=== PATIENT | female | born 2000 | race Caucasian/White ===

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

== ENCOUNTER 2022-08-25 10:00 | Inpatient (IN) | payer BC ==
[2022-08-25 11:58] LABS: Amorphous Sediment,Urine Occasional /hpf; Appearance,Urine Turbid (Clear); Bilirubin,Urine Negative (Negative); Blood,Urine Large (Negative); Color,Urine Yellow; Glucose,Urine (UA) Negative (Negative); Ketones,Urine Negative (Negative); Leukocyte Esterase,Urine Negative (Negative); Mucus,Urine Rare /hpf; Nitrite,Urine Negative (Negative); PH, Urine 7.5 (5.0-8.0); Protein,Urine Trace (Negative); RBC,Urine 104 /hpf (0-5); Specific Gravity,Urine 1.022 (1.001-1.035); Squamous Epithelial Cell,Urine <1 /hpf (0-4); Urobilinogen,Urine <2.0 mg/dL (<2.0); WBC,Urine 2 /hpf (0-5)
[2022-08-25 12:10] LABS: Amphetamine Screen,Urine Not Detected (NotDetected); Barbiturate Screen,Urine Not Detected (NotDetected); Benzodiazepines Screen,Urine Not Detected (NotDetected); Cocaine Screen,Urine Not Detected (NotDetected); Methadone Screen, Urine Not Detected (NotDetected); Opiate Screen,Urine Not Detected (NotDetected); Oxycodone Screen, Urine Not Detected (NotDetected); Phencyclidine Screen,Urine Not Detected (NotDetected); Tricyclic Antidepressant,Urine Not Detected (NotDetected); Urn Cannabinoid Scrn Detected (NotDetected)
--- NOTE | 2022-08-25 12:53 | ED ---
Psych HPI - General Chief Complaint: Psychiatric Symptoms Stated Complaint: mental health Time Seen by Provider: 08/25/22 10:45 Source: patient Mode of arrival: ambulatory - History of Present Illness Initial Comments: 21-year-old female presents emergency department with depression. States that she has a history of depression and sees a psychiatrist. She takes Abilify and Cymbalta. Has been off her medications for 1 week. Reports that she has become increasingly stressed and depressed. This morning she was injured about harming herself by cutting herself. Plan was to cut her wrists. Presents for mental health evaluation. No drugs or alcohol use. No concern for . No other alleviating, precipitating or modifying factors. - Related Data Home Medications Medication Instructions Recorded Confirmed ARIPiprazole 10 mg PO HS 08/25/22 08/25/22 DULoxetine HCL [Cymbalta] 60 mg PO HS 08/25/22 08/25/22 medroxyPROGESTERone [Depo-Provera] 150 mg IM Q90D 08/25/22 08/25/22 Allergies Allergy/AdvReac Type Severity Reaction Status Date / Time No Known Allergies Allergy Verified 08/25/22 11:48 Review of Systems ROS Statement: Those systems with pertinent positive or pertinent negative responses have been documented in the HPI. ROS Other: All systems not noted in ROS Statement are negative. Past Medical History Past Medical History: No Reported History History of Any Multi-Drug Resistant Organisms: None Reported Past Surgical History: No Surgical Hx Reported Past Psychological History: Anxiety, Bipolar, Depression, PTSD, Schizoaffective Disorder Smoking Status: Current every day smoker, Vaper Past Alcohol Use History: None Reported Past Drug Use History: Marijuana General Exam Limitations: no limitations General appearance: alert, in no apparent distress Head exam: Present: atraumatic, normocephalic, normal inspection Eye exam: Present: normal appearance, PERRL, EOMI. Absent: scleral icterus, conjunctival injection, periorbital swelling ENT exam: Present: normal exam, mucous membranes moist Neck exam: Present: normal inspection. Absent: tenderness, meningismus, lymphadenopathy Respiratory exam: Present: normal lung sounds bilaterally. Absent: respiratory distress, wheezes, rales, rhonchi, stridor Cardiovascular Exam: Present: regular rate, normal rhythm, normal heart sounds. Absent: systolic murmur, diastolic murmur, rubs, gallop, clicks GI/Abdominal exam: Present: soft, normal bowel sounds. Absent: distended, tenderness, guarding, rebound, rigid Extremities exam: Present: normal inspection, full ROM, normal capillary refill. Absent: tenderness, pedal edema, joint swelling, calf tenderness Back exam: Present: normal inspection Neurological exam: Present: alert, oriented X3, CN II-XII intact Psychiatric exam: Present: depressed Skin exam: Present: warm, dry, intact, normal color. Absent: rash Course Vital Signs 08/25/22 10:40 Temperature 98.6 F Pulse Rate 88 Respiratory 18 Rate Blood Pressure 125/80 O2 Sat by Pulse 100 Oximetry Medical Decision Making - Medical Decision Making On arrival patient is placed into room 27. She is currently awaiting EPS evaluation at this time as she is medically clear - Lab Data Result diagrams: 08/26/22 09:15 08/26/22 09:15 Lab Results 08/25/22 08/25/22 08/25/22 Range/Units 11:44 11:44 11:44 Urine Color Yellow Urine Appearance Turbid H (Clear) Urine pH 7.5 (5.0-8.0) Ur Specific [place] 1.022 (1.001-1.035) Urine Protein Trace H (Negative) Urine Glucose (UA) Negative (Negative) Urine Ketones Negative (Negative) Urine Blood Large H (Negative) Urine Nitrite Negative (Negative) Urine Bilirubin Negative (Negative) Urine Urobilinogen <2.0 (<2.0) mg/dL Ur Leukocyte Esterase Negative (Negative) Urine RBC 104 H (0-5) /hpf Urine WBC 2 (0-5) /hpf Ur Squamous Epith Cells <1 (0-4) /hpf Amorphous Sediment Occasional H (None) /hpf Urine Mucus Rare H (None) /hpf Urine HCG, Qual Not Detected (Not Detectd) Urine Opiates Screen Not Detected (NotDetected) Ur Oxycodone Screen Not Detected (NotDetected) Urine Methadone Screen Not Detected (NotDetected) Ur Propoxyphene Screen Not Detected (NotDetected) Ur Barbiturates Screen Not Detected (NotDetected) U Tricyclic Antidepress Not Detected (NotDetected) Ur Phencyclidine Scrn Not Detected (NotDetected) Ur Amphetamines Screen Not Detected (NotDetected) U Methamphetamines Scrn Not Detected (NotDetected) U Benzodiazepines Scrn Not Detected (NotDetected) Urine Cocaine Screen Not Detected (NotDetected) U Marijuana (THC) Screen Detected H (NotDetected) Coronavirus (PCR) (Not Detectd) 08/25/22 Range/Units 16:10 Urine Color Urine Appearance (Clear) Urine pH (5.0-8.0) Ur Specific [place] (1.001-1.035) Urine Protein (Negative) Urine Glucose (UA) (Negative) Urine Ketones (Negative) Urine Blood (Negative) Urine Nitrite (Negative) Urine Bilirubin (Negative) Urine Urobilinogen (<2.0) mg/dL Ur Leukocyte Esterase (Negative) Urine RBC (0-5) /hpf Urine WBC (0-5) /hpf Ur Squamous Epith Cells (0-4) /hpf Amorphous Sediment (None) /hpf Urine Mucus (None) /hpf Urine HCG, Qual (Not Detectd) Urine Opiates Screen (NotDetected) Ur Oxycodone Screen (NotDetected) Urine Methadone Screen (NotDetected) Ur Propoxyphene Screen (NotDetected) Ur Barbiturates Screen (NotDetected) U Tricyclic Antidepress (NotDetected) Ur Phencyclidine Scrn (NotDetected) Ur Amphetamines Screen (NotDetected) U Methamphetamines Scrn (NotDetected) U Benzodiazepines Scrn (NotDetected) Urine Cocaine Screen (NotDetected) U Marijuana (THC) Screen (NotDetected) Coronavirus (PCR) Not Detected (Not Detectd) Disposition Clinical Impression: Suicidal ideation, Depression Disposition: TRANSFER TO PSYCH HOSP/UNIT Condition: Stable Is patient prescribed a controlled substance at d/c from ED?: No
[2022-08-25] MEDS ORDERED: ACETAMINOPHEN TAB 325 MG TAB PO PRN (19:06)
[2022-08-25] MEDS ORDERED: MAG HYDROX/AL HYDROX/SIMETH 30 ML CUP PO PRN (19:06)
[2022-08-25] MEDS ORDERED: MAGNESIUM HYDROXIDE 2,400 MG/10 ML CUP PO PRN (19:06)
[2022-08-25] MEDS ORDERED: OLANZapine 10 MG VIAL IM PRN (19:08)
[2022-08-25] MEDS ORDERED: hydrOXYzine HCL 50 MG/ML 1 ML VIAL IM PRN (19:08)
[2022-08-25] MEDS ORDERED: OLANZapine 5 MG TAB PO PRN (19:08)
[2022-08-25] MEDS: NICOTINE 21MG/24HR PATCH TRANSDERM SCH (20:35)
[2022-08-25] MEDS: traZODone HCL 100 MG TAB PO PRN (20:35)
[2022-08-26] MEDS: hydrOXYzine pamoate 25 MG CAP PO PRN (08:39)
[2022-08-26] MEDS: NICOTINE 21MG/24HR PATCH TRANSDERM SCH (09:28)
[2022-08-26 09:53] LABS: Basophils # (A) 0.1 k/uL (0-0.2); Basophils % (A) 1 %; Eosinophils # (A) 0.3 k/uL (0-0.7); Eosinophils % (A) 5 %; HCT 38.9 % (34.0-46.0); HGB 12.2 gm/dL (11.4-16.0); Lymphocytes # (A) 1.7 k/uL (1.0-4.8); Lymphocytes % (A) 31 %; MCH 27.6 pg (25.0-35.0); MCHC 31.5 g/dL (31.0-37.0); MCV 87.7 fL (80.0-100.0); Mean Platelet Volume 7.3; Monocytes # (A) 0.2 k/uL (0-1.0); Monocytes % (A) 4 %; Neutrophils % (A) 56 %; Platelet Count 327 k/uL (150-450); RBC 4.43 m/uL (3.80-5.40); RDW 12.8 % (11.5-15.5); WBC 5.4 k/uL (4.0-11.0)
[2022-08-26 10:04] LABS: ALT 18 U/L (4-34); AST 18 U/L (14-36); African American GFR (CKD) >90 (>60 ml/min/1.73 sqM); Albumin 4.8 g/dL (3.5-5.0); Alkaline Phosphatase 49 U/L (38-126); Anion Gap 13 mmol/L; Bilirubin, Delta 0.2 mg/dL (0.0-0.2); Bilirubin,Unconjugated 0.4 mg/dL (0.0-1.1); Blood Urea Nitrogen 13 mg/dL (7-17); Calcium 9.6 mg/dL (8.4-10.2); Carbon Dioxide 24 mmol/L (22-30); Chloride 105 mmol/L (98-107); Glucose 93 mg/dL (74-99); Non-African American GFR(CKD) >90 (>60 ml/min/1.73 sqM); Potassium 4.4 mmol/L (3.5-5.1); Sodium 142 mmol/L (137-145); Total Bilirubin 0.6 mg/dL (0.2-1.3); Total Protein 7.2 g/dL (6.3-8.2)
--- NOTE | 2022-08-26 11:27 | P.HP ---
Psychiatric H&P - . H&P Date: 08/26/22 History & Physical: Allergies Allergy/AdvReac Type Severity Reaction Status Date / Time No Known Allergies Allergy Verified 08/25/22 11:48 Vital Signs Temp 97.6 F 08/25/22 21:51 Pulse 92 08/25/22 21:51 Resp 18 08/25/22 21:51 BP 121/80 08/25/22 21:51 Pulse Ox 100 08/25/22 21:51 FiO2 Intake & Output 08/25/22 08/26/22 08/26/22 18:59 06:59 18:59 Weight 66.224 kg 64.4 kg Laboratory Last Values WBC 5.4 k/uL (4.0-11.0) 08/26/22 09:15 RBC 4.43 m/uL (3.80-5.40) 08/26/22 09:15 Hgb 12.2 gm/dL (11.4-16.0) 08/26/22 09:15 Hct 38.9 % (34.0-46.0) 08/26/22 09:15 MCV 87.7 fL (80.0-100.0) 08/26/22 09:15 MCH 27.6 pg (25.0-35.0) 08/26/22 09:15 MCHC 31.5 g/dL (31.0-37.0) 08/26/22 09:15 RDW 12.8 % (11.5-15.5) 08/26/22 09:15 Plt Count 327 k/uL (150-450) 08/26/22 09:15 MPV 7.3 08/26/22 09:15 Neutrophils % 56 % 08/26/22 09:15 Lymphocytes % 31 % 08/26/22 09:15 Monocytes % 4 % 08/26/22 09:15 Eosinophils % 5 % 08/26/22 09:15 Basophils % 1 % 08/26/22 09:15 Neutrophils # 3.0 k/uL (1.3-7.7) 08/26/22 09:15 Lymphocytes # 1.7 k/uL (1.0-4.8) 08/26/22 09:15 Monocytes # 0.2 k/uL (0-1.0) 08/26/22 09:15 Eosinophils # 0.3 k/uL (0-0.7) 08/26/22 09:15 Basophils # 0.1 k/uL (0-0.2) 08/26/22 09:15 Sodium 142 mmol/L (137-145) 08/26/22 09:15 Potassium 4.4 mmol/L (3.5-5.1) 08/26/22 09:15 Chloride 105 mmol/L (98-107) 08/26/22 09:15 Carbon Dioxide 24 mmol/L (22-30) 08/26/22 09:15 Anion Gap 13 mmol/L 08/26/22 09:15 BUN 13 mg/dL (7-17) 08/26/22 09:15 Creatinine 0.84 mg/dL (0.52-1.04) 08/26/22 09:15 Est GFR (CKD-EPI)AfAm >90 (>60 ml/min/1.73 sqM) 08/26/22 09:15 Est GFR (CKD-EPI)NonAf >90 (>60 ml/min/1.73 sqM) 08/26/22 09:15 Glucose 93 mg/dL (74-99) 08/26/22 09:15 Calcium 9.6 mg/dL (8.4-10.2) 08/26/22 09:15 Total Bilirubin 0.6 mg/dL (0.2-1.3) 08/26/22 09:15 Conjugated Bilirubin 0.0 mg/dL (0.0-0.3) 08/26/22 09:15 Unconjugated Bilirubin 0.4 mg/dL (0.0-1.1) 08/26/22 09:15 Delta Bilirubin 0.2 mg/dL (0.0-0.2) 08/26/22 09:15 AST 18 U/L (14-36) 08/26/22 09:15 ALT 18 U/L (4-34) 08/26/22 09:15 Alkaline Phosphatase 49 U/L (38-126) 08/26/22 09:15 Total Protein 7.2 g/dL (6.3-8.2) 08/26/22 09:15 Albumin 4.8 g/dL (3.5-5.0) 08/26/22 09:15 TSH 1.800 mIU/L (0.465-4.680) 08/26/22 09:15 Urine Color Yellow 08/25/22 11:44 Urine Appearance Turbid (Clear) H 08/25/22 11:44 Urine pH 7.5 (5.0-8.0) 08/25/22 11:44 Ur Specific [place] 1.022 (1.001-1.035) 08/25/22 11:44 Urine Protein Trace (Negative) H 08/25/22 11:44 Urine Glucose (UA) Negative (Negative) 08/25/22 11:44 Urine Ketones Negative (Negative) 08/25/22 11:44 Urine Blood Large (Negative) H 08/25/22 11:44 Urine Nitrite Negative (Negative) 08/25/22 11:44 Urine Bilirubin Negative (Negative) 08/25/22 11:44 Urine Urobilinogen <2.0 mg/dL (<2.0) 08/25/22 11:44 Ur Leukocyte Esterase Negative (Negative) 08/25/22 11:44 Urine RBC 104 /hpf (0-5) H 08/25/22 11:44 Urine WBC 2 /hpf (0-5) 08/25/22 11:44 Ur Squamous Epith Cells <1 /hpf (0-4) 08/25/22 11:44 Amorphous Sediment Occasional /hpf (None) H 08/25/22 11:44 Urine Mucus Rare /hpf (None) H 08/25/22 11:44 Urine HCG, Qual Not Detected (Not Detectd) 08/25/22 11:44 Urine Opiates Screen Not Detected (NotDetected) 08/25/22 11:44 Ur Oxycodone Screen Not Detected (NotDetected) 08/25/22 11:44 Urine Methadone Screen Not Detected (NotDetected) 08/25/22 11:44 Ur Propoxyphene Screen Not Detected (NotDetected) 08/25/22 11:44 Ur Barbiturates Screen Not Detected (NotDetected) 08/25/22 11:44 U Tricyclic Antidepress Not Detected (NotDetected) 08/25/22 11:44 Ur Phencyclidine Scrn Not Detected (NotDetected) 08/25/22 11:44 Ur Amphetamines Screen Not Detected (NotDetected) 08/25/22 11:44 U Methamphetamines Scrn Not Detected (NotDetected) 08/25/22 11:44 U Benzodiazepines Scrn Not Detected (NotDetected) 08/25/22 11:44 Urine Cocaine Screen Not Detected (NotDetected) 08/25/22 11:44 U Marijuana (THC) Screen Detected (NotDetected) H 08/25/22 11:44 Coronavirus (PCR) Not Detected (Not Detectd) 08/25/22 16:10 08/26/22 11:12 IDENTIFYING DATA: Patient is a 20-year-old female, currently lives with her parents at home works at a [employer]. HPI: Patient presented to the hospital and according to ER report was combining her depression and previously on Abilify and Cymbalta. According to patient she stated that she was off medications for about a week. She was reporting increased stress and also depression and also a plan to cut her wrists. She tested positive for THC in her UDS. Patient was admitted voluntarily to the unit. She claims that the last few weeks have been "harder" and states that she has been having poor support. She claims that her and her boyfriend broke up about 3 days ago. She states that she "messed up a previous relationship" and states that he was a rebound. She states that she stopped taking her medications as it did not make her feel well. She claims that her psychiatrist up the dose and she did not like that. She claims that she has been feeling more depressed and irritable and also angry. She also was reporting mood swings. She states that she was feeling suicidal over his not reporting any current ideations or any plan. She was reporting mild paranoia at this time. She states that she is not having any auditory or visual hallucinations at this time. bPatient denies any flight of ideas racing thoughts and increased in goal directed behavior. Patient admits to using marijuana daily, cigarettes daily. PAST PSYCHIATRIC HISTORY: Patient states that she has a history of borderline personality disorder, PTSD and also depression.. She is currently on Cymbalta and Abilify. Patient denies any previous psychiatric hospitalizations. She claims that she does have a outpatient psychiatrist in [place] she visits with [facility]. She claims that she did overdose at the age of 15. PMH:denies ALLERGIES: as per EMR CHEMICAL DEPENDENCY HISTORY: as per HPI FAMILY PSYCHIATRIC/SUBSTANCE USE HISTORY: Claims that her father was depressed grandmother is depressed and also had OCD. She states that her sister has OCD. SOCIAL HISTORY: Patient was born and raised in [facility]. She claims that she completed high school and did associate's in Art in college. She states she did not have any kids, unmarried. She works at a [employer]. She lives with her parents. Equal history.. MENTAL STATUS EXAM: General Appearance: Patient appears to be short in stature, short hair, glasses, stated age is alert, directable, and attempts to cooperate. Patient appears to have fair hygiene and grooming. Behavior: Patient is seated without any agitated behavior. mildly irritable. Speech: Patient's speech is fluent and nonpressured. Mood/Affect: Patient reports their mood is depressed and anxious, affect is congruent and constricted. Suicidality/Homicidality: Patient denies having any homicidal ideation intent or plan. Denies any suicidal ideations intent or plan Perceptions: Patient denies any visual hallucinations and denies any auditory hallucinations Though content/process: There is no evidence of any delusional thought content and thought process is linear and goal-directed. [place]. Memory and concentration: AOX3, grossly intact for the purposes of this session. Can spell "WORLD" backwards Judgment and insight: poor/impulsive STRENGTHS/WEAKNESSES: strength is that patient is resilient. Weakness is that patient has poor judgment and is impulsive INTELLECT: average IMPRESSIONS: Major depressive disorder, recurrent, without psychotic features Borderline personality disorder Cannabis use disorder Nicotine dependence PLAN: -Patient is admitted under voluntary status to MHU for stabilization of psychiatric symptoms and safety. Patient has signed adult voluntary form and medication consent and is placed in patient's chart. -Medications : Will start patient on lithium 150 mg twice a day for mood stabilization/suicidal thoughts, Cymbalta 30 mg daily at bedtime for anxiety/mood -Ativan and Haldol PRN for agitation/aggression -Patient was counselled on substance abuse and desired to cut back on use -Patient was informed of the risks, benefits and side effects of the medication and patient verbally consented to taking the medications. Patient signed med consent form and was placed in chart. -Internal Medicine consult to perform medical evaluation and physical. -NRT - nicotine patch -SW on board for discharge planning. Encourage patient to participate in groups to work on coping skills. 08/26/22 11:22
[2022-08-26] MEDS: LITHIUM CARBONATE 150 MG CAP PO SCH ×2 (11:38→20:31)
[2022-08-26 16:37] LABS: Chol/HDL Ratio 3.09 Ratio; LDL Cholesterol,Calculated 99.2 mg/dL (0.0-131.0); VLDL Calculation 10.34 mg/dL (5.00-40.00)
[2022-08-26] MEDS: traZODone HCL 100 MG TAB PO PRN (20:30)
[2022-08-26] MEDS: DULoxetine HCL 30 MG CAPSULE.DR PO SCH (20:31)
--- NOTE | 2022-08-27 00:26 | CONS ---
CONSULTATION REASON FOR CONSULTATION: Advice regarding nicotine dependence and other medical issues, requested by Psychiatry. HISTORY OF PRESENT ILLNESS: This 21-year-old woman with a past medical history of multiple medical problems, anxiety, bipolar depression, also had history of nicotine dependence and THC also. The patient was admitted for further evaluation. Baseline labs are normal. UA was reviewed, otherwise, some blood, unremarkable. COVID-19 is negative. There is no history of any fever, rigors, or chills. PAST MEDICAL HISTORY: Reviewed, include anxiety, bipolar depression, PTSD. HOME MEDICATIONS: Again, reviewed and include Depo-Provera, dose and rest of the medications noted. ALLERGIES: None. FAMILY HISTORY: No history of heart diseases or strokes in the family. SOCIAL HISTORY: History of vaping, nicotine dependence, THC. REVIEW OF SYSTEMS: A 14-point review of systems is negative as mentioned earlier. PHYSICAL EXAMINATION: VITAL SIGNS: Pulse 82, blood pressure 121/80, respirations 18. HEENT: Conjunctivae normal. NECK: No JVD. CARDIOVASCULAR: S1, S2. RESPIRATION: Breath sounds diminished in the bases. No rhonchi. No crackles. ABDOMEN: Soft, nontender. LEGS: No edema. NERVOUS SYSTEM: Nonfocal. LABORATORY DATA: CBC, BMP noted. UA noted. ASSESSMENT: 1. Anxiety, bipolar depression. 2. History of nicotine dependence. 3. History of THC. RECOMMENDATIONS: This 21-year-old woman presented for psychiatric evaluation, is currently medically stable. The patient has no specific symptoms on the urine exam and does not show any evidence of UTI. Recommend to follow up closely, and we will review the patient if there are any other new symptoms. The patient may be asked to follow up with the primary physician closely after discharge. Smoking cessation has been recommended. MMODL / IJN: [id number] /
[2022-08-27] MEDS: LITHIUM CARBONATE 150 MG CAP PO SCH ×2 (08:49→20:05)
[2022-08-27] MEDS: NICOTINE 21MG/24HR PATCH TRANSDERM SCH (08:49)
[2022-08-27 08:53] VITALS: RESP 16
--- NOTE | 2022-08-27 11:56 | P.PN ---
Subjective Progress Note Date: 08/27/22 Principal diagnosis: IMPRESSIONS: Major depressive disorder, recurrent, without psychotic features Borderline personality disorder Cannabis use disorder Nicotine dependence Subjective data: The patient reports that she gets very impulsive and then she becomes uncooperative She states that she doesn't give a damn about her boyfriend and that things were just going out of control although she did not specify the reasons She says that she had stopped taking her medications and did not feel that she wanted to live anymore She says that she does not feel that way anymore She says that she understands that she has bipolar and borderline personality disorder and that she sees a therapist a regular basis She says that she needs to continue in therapy and counseling and that she'll be going back to live with her parents MENTAL STATUS EXAM: General Appearance: Patient appears to be short in stature, short hair, glasses, stated age is alert, directable, and attempts to cooperate. Patient appears to have fair hygiene and grooming. Behavior: Patient is seated without any agitated behavior. mildly irritable. Speech: Patient's speech is fluent and nonpressured. Mood/Affect: Patient reports their mood is depressed and anxious, affect is congruent and constricted. Suicidality/Homicidality: Patient denies having any homicidal ideation intent or plan. Denies any suicidal ideations intent or plan Perceptions: Patient denies any visual hallucinations and denies any auditory hallucinations Though content/process: There is no evidence of any delusional thought content and thought process is linear and goal-directed. [place]. Memory and concentration: AOX3, grossly intact for the purposes of this session. Can spell "WORLD" backwards Judgment and insight: poor/impulsive STRENGTHS/WEAKNESSES: strength is that patient is resilient. Weakness is that patient has poor judgment and is impulsive INTELLECT: average IMPRESSIONS: Major depressive disorder, recurrent, without psychotic features Borderline personality disorder Cannabis use disorder Nicotine dependence PLAN: -Patient is admitted under voluntary status to MHU for stabilization of psychiatric symptoms and safety. Patient has signed adult voluntary form and medication consent and is placed in patient's chart. -Medications : Continue lithium 150 mg twice a day for mood stabilization/suicidal thoughts, Cymbalta 30 mg daily at bedtime for anxiety/mood -Ativan and Haldol PRN for agitation/aggression -Patient was counselled on substance abuse and desired to cut back on use -Patient was informed of the risks, benefits and side effects of the medication and patient verbally consented to taking the medications. Patient signed med consent form and was placed in chart. -Internal Medicine consult to perform medical evaluation and physical. -NRT - nicotine patch -SW on board for discharge planning. Encourage patient to participate in groups to work on coping skills. Objective - Vital Signs Vital signs: Vital Signs Temp 97.7 F 08/27/22 08:52 Pulse 77 08/27/22 08:52 Resp 16 08/27/22 08:52 BP 130/72 08/27/22 08:52 Pulse Ox 100 08/27/22 08:52 FiO2 - Labs CBC & Chem 7: 08/26/22 09:15 08/26/22 09:15
[2022-08-27] MEDS: DULoxetine HCL 30 MG CAPSULE.DR PO SCH (20:04)
[2022-08-28] MEDS: LITHIUM CARBONATE 150 MG CAP PO SCH ×2 (08:39→20:21)
[2022-08-28] MEDS: NICOTINE 21MG/24HR PATCH TRANSDERM SCH (08:39)
--- NOTE | 2022-08-28 11:26 | P.PN ---
Subjective Progress Note Date: 08/28/22 Principal diagnosis: IMPRESSIONS: Major depressive disorder, recurrent, without psychotic features Borderline personality disorder Cannabis use disorder Nicotine dependence Subjective data: The patient reports that she is feeling much better she said that she is working on her assertiveness training She states that she has been journaling She says that she feels much more positive and does not feel that she is having any suicidal or homicidal ideations She says that her depression also has decreased and that she is feeling a lot more positive MENTAL STATUS EXAM: General Appearance: Patient appears to be short in stature, short hair, glasses, stated age is alert, directable, and attempts to cooperate. Patient appears to have fair hygiene and grooming. Behavior: Patient is seated without any agitated behavior. mildly irritable. Speech: Patient's speech is fluent and nonpressured. Mood/Affect: Patient reports their mood is depressed and anxious, affect is congruent and constricted. Suicidality/Homicidality: Patient denies having any homicidal ideation intent or plan. Denies any suicidal ideations intent or plan Perceptions: Patient denies any visual hallucinations and denies any auditory hallucinations Though content/process: There is no evidence of any delusional thought content and thought process is linear and goal-directed. [place]. Memory and concentration: AOX3, grossly intact for the purposes of this session. Can spell "WORLD" backwards Judgment and insight: poor/impulsive STRENGTHS/WEAKNESSES: strength is that patient is resilient. Weakness is that patient has poor judgment and is impulsive INTELLECT: average IMPRESSIONS: Major depressive disorder, recurrent, without psychotic features Borderline personality disorder Cannabis use disorder Nicotine dependence PLAN: -Patient is admitted under voluntary status to MHU for stabilization of psychiatric symptoms and safety. Patient has signed adult voluntary form and medication consent and is placed in patient's chart. -Medications : Continue lithium 150 mg twice a day for mood stabilization/suicidal thoughts, Cymbalta 30 mg daily at bedtime for anxiety/mood -Ativan and Haldol PRN for agitation/aggression -Patient was counselled on substance abuse and desired to cut back on use -Patient was informed of the risks, benefits and side effects of the medication and patient verbally consented to taking the medications. Patient signed med consent form and was placed in chart. -Internal Medicine consult to perform medical evaluation and physical. -NRT - nicotine patch -SW on board for discharge planning. Encourage patient to participate in groups to work on coping skills. Objective - Vital Signs Vital signs: Vital Signs Temp 97.7 F 08/28/22 06:45 Pulse 101 H 08/28/22 06:45 Resp 16 08/28/22 06:45 BP 144/63 08/28/22 06:45 Pulse Ox 100 08/27/22 08:52 FiO2 - Labs CBC & Chem 7: 08/26/22 09:15 08/26/22 09:15
[2022-08-28] MEDS: hydrOXYzine pamoate 25 MG CAP PO PRN (16:45)
[2022-08-28] MEDS: DULoxetine HCL 30 MG CAPSULE.DR PO SCH (20:21)
[2022-08-28] MEDS: traZODone HCL 100 MG TAB PO PRN (22:51)
[2022-08-29 07:17] VITALS: BP 113/66; PULSE 94; TEMP 97.8
[2022-08-29] MEDS: LITHIUM CARBONATE 150 MG CAP PO SCH ×2 (08:33→20:37)
[2022-08-29] MEDS: NICOTINE 21MG/24HR PATCH TRANSDERM SCH (08:33)
[2022-08-29] MEDS: hydrOXYzine pamoate 25 MG CAP PO PRN (14:23)
[2022-08-29] MEDS: DULoxetine HCL 30 MG CAPSULE.DR PO SCH (20:37)
[2022-08-29] MEDS: traZODone HCL 100 MG TAB PO PRN (21:56)
[2022-08-30] MEDS: NICOTINE 21MG/24HR PATCH TRANSDERM SCH (08:33)
[2022-08-30] MEDS: LITHIUM CARBONATE 150 MG CAP PO SCH (08:33)
--- NOTE | 2022-08-30 10:35 | P.DS ---
Providers Date of admission: 08/25/22 19:05 Expected date of discharge: 08/30/22 Attending physician: Liam Westfall MD Consults: 08/25/22 19:06 Consult Physician Routine Consulting Provider: Nahomy Meyer Consult Reason/Comments: Medical H&P Do you want consulting provider notified?: Yes Primary care physician: Cecile Ayala - Discharge Diagnosis(es) (1) Major depressive disorder, recurrent severe without psychotic features Current Visit: Yes Status: Acute Priority: High (2) Borderline personality disorder Current Visit: Yes Status: Acute Priority: High (3) Cannabis use disorder Current Visit: Yes Status: Acute Priority: Medium (4) Nicotine dependence Current Visit: Yes Status: Acute Priority: Low Hospital Course: Admission HPI: Admission note was completed by story writer "Patient is a 20-year-old female, currently lives with her parents at home works at a [employer]. Patient presented to the hospital and according to ER report was combining her depression and previously on Abilify and Cymbalta. According to patient she stated that she was off medications for about a week. She was reporting increased stress and also depression and also a plan to cut her wrists. She tested positive for THC in her UDS. Patient was admitted voluntarily to the unit. She claims that the last few weeks have been "harder" and states that she has been having poor support. She claims that her and her boyfriend broke up about 3 days ago. She states that she "messed up a previous relationship" and states that he was a rebound. She states that she stopped taking her medi cations as it did not make her feel well. She claims that her psychiatrist up the dose and she did not like that. She claims that she has been feeling more depressed and irritable and also angry. She also was reporting mood swings. She states that she was feeling suicidal over his not reporting any current ideations or any plan. She was reporting mild paranoia at this time. She states that she is not having any auditory or visual hallucinations at this time. bPatient denies any flight of ideas racing thoughts and increased in goal directed behavior. Patient admits to using marijuana daily, cigarettes daily." Hospital course: Upon admission to the unit patient was directable and agreeable to commence treatment and signed adult voluntary form . Patient got along well with other patients on the unit and followed unit protocol. Patient was compliant with the medications and denied any side effects throughout hospital course. Patient was started on Cymbalta 30 mg daily for anxiety/mood, lithium 150 mg twice a day for mood stabilization/suicidal thoughts, Vistaril when necessary for anxiety, trazodone 100 mg daily at bedtime when necessary for insomnia. Patient spoke of her stressors and engaged in therapy both group and individual. Patient was also seen by medical team for history and physical exam. Throughout the course of the hospitalization patient gradually improved with regards to mood, anxiety, sleep and became more future oriented with improved insight and judgment. On the day of discharge patient denied any suicidal or homicidal ideations intent or plan denied any auditory or visual hallucinations. Patient endorsed wanting to live for her health and her dog. The patient denied any access to guns or weapons. Patient denied any paranoia and did not endorse any delusions. Patient does have a significant history of substance abuse and was counseled on abstaining from all substances including alcohol and marijuana. Patient elected to do outpatient substance use treatment program through [facility]. Patient was also counseled on the medications and need for regular compliance and was encouraged to follow-up with their outpatient appointment for mental health and also for primary care. Prior to discharge a family meeting will be arranged by social media project manager to answer any questions and ensure safety upon discharge. Mental status exam: General Appearance: Patient appears to be short in stature, short hair, wearing glasses, stated age is alert, pleasant, and cooperative. Patient is in no acute distress and has improved hygiene and grooming Behavior: Patient is calmly seated without any agitated behavior. Speech: Patient's speech is fluent and nonpressured. Mood/Affect: Patient reports their mood is "good", affect is congruent and euthymic. Suicidality/Homicidality: Patient denies having any suicidal or homicidal ideation intent or plan. Perceptions: Patient denies any auditory or visual hallucinations. Though content/process: There is no evidence of any delusional thought content and thought process is linear and goal-directed. more future oriented Memory and concentration: AOX3, grossly intact for the purposes of this session. Can spell "WORLD" backwards correctly. Judgment and insight: chronically poor, however has improved with guarded prognosis Impression: Major depressive disorder, severe, recurrent, without psychotic features Borderline personality disorder Cannabis use disorder Nicotine dependence Plan: -Continue with discharge today as patient has improved and stabilized psychiatrically and is not currently an imminent threat to herself and/or others. Patient will remain at chronically elevated risk for harm to self and/or others due to her impulsivity and substance abuse. -Continue medications: Cymbalta 30 mg daily for mood/anxiety, lithium 150 mg twice a day for mood stabilization/suicidal thoughts, trazodone 100 mg daily at bedtime when necessary for insomnia, Vistaril 50 mg twice a day when necessary for anxiety. -Patient was counseled on the need for medication compliance and appropriate follow-up at mental health and also primary care for medical issues. Patient verbalized understanding and agreed. -Social work to arrange for and conduct family meeting to ensure safety upon discharge and answer any questions/concerns. Social work also to arrange for patients follow up appointments with [facility] for psychiatric care along with follow up with primary care provider. -Patient counseled on abstaining from recreational drugs and marijuana and alcohol. Was informed/educated on the adverse effects on their physical and mental health. Patient verbally agreed and understood. Patient was offered substance abuse treatment however declined at this time. -Patient was instructed to return to the hospital or seek immediate medical care if their psychiatric or medical symptoms do worsen or reoccur. Allergies Allergy/AdvReac Type Severity Reaction Status Date / Time No Known Allergies Allergy Verified 08/25/22 11:48 Laboratory Results WBC 5.4 k/uL (4.0-11.0) 08/26/22 09:15 RBC 4.43 m/uL (3.80-5.40) 08/26/22 09:15 Hgb 12.2 gm/dL (11.4-16.0) 08/26/22 09:15 Hct 38.9 % (34.0-46.0) 08/26/22 09:15 MCV 87.7 fL (80.0-100.0) 08/26/22 09:15 MCH 27.6 pg (25.0-35.0) 08/26/22 09:15 MCHC 31.5 g/dL (31.0-37.0) 08/26/22 09:15 RDW 12.8 % (11.5-15.5) 08/26/22 09:15 Plt Count 327 k/uL (150-450) 08/26/22 09:15 MPV 7.3 08/26/22 09:15 Neutrophils % 56 % 08/26/22 09:15 Lymphocytes % 31 % 08/26/22 09:15 Monocytes % 4 % 08/26/22 09:15 Eosinophils % 5 % 08/26/22 09:15 Basophils % 1 % 08/26/22 09:15 Neutrophils # 3.0 k/uL (1.3-7.7) 08/26/22 09:15 Lymphocytes # 1.7 k/uL (1.0-4.8) 08/26/22 09:15 Monocytes # 0.2 k/uL (0-1.0) 08/26/22 09:15 Eosinophils # 0.3 k/uL (0-0.7) 08/26/22 09:15 Basophils # 0.1 k/uL (0-0.2) 08/26/22 09:15 Sodium 142 mmol/L (137-145) 08/26/22 09:15 Potassium 4.4 mmol/L (3.5-5.1) 08/26/22 09:15 Chloride 105 mmol/L (98-107) 08/26/22 09:15 Carbon Dioxide 24 mmol/L (22-30) 08/26/22 09:15 Anion Gap 13 mmol/L 08/26/22 09:15 BUN 13 mg/dL (7-17) 08/26/22 09:15 Creatinine 0.84 mg/dL (0.52-1.04) 08/26/22 09:15 Est GFR (CKD-EPI)AfAm >90 (>60 ml/min/1.73 sqM) 08/26/22 09:15 Est GFR (CKD-EPI)NonAf >90 (>60 ml/min/1.73 sqM) 08/26/22 09:15 Glucose 93 mg/dL (74-99) 08/26/22 09:[address] Glu mg/dL 107 08/26/22 09:15 Hemoglobin A1c 5.4 % (0.0-6.0) 08/26/22 09:15 Calcium 9.6 mg/dL (8.4-10.2) 08/26/22 09:15 Total Bilirubin 0.6 mg/dL (0.2-1.3) 08/26/22 09:15 Conjugated Bilirubin 0.0 mg/dL (0.0-0.3) 08/26/22 09:15 Unconjugated Bilirubin 0.4 mg/dL (0.0-1.1) 08/26/22 09:15 Delta Bilirubin 0.2 mg/dL (0.0-0.2) 08/26/22 09:15 AST 18 U/L (14-36) 08/26/22 09:15 ALT 18 U/L (4-34) 08/26/22 09:15 Alkaline Phosphatase 49 U/L (38-126) 08/26/22 09:15 Total Protein 7.2 g/dL (6.3-8.2) 08/26/22 09:15 Albumin 4.8 g/dL (3.5-5.0) 08/26/22 09:15 Triglycerides 51.70 mg/dL (0.00-149.00) 08/26/22 09:15 Cholesterol 162.00 mg/dL (0.00-200.00) 08/26/22 09:15 LDL Cholesterol, Calc 99.2 mg/dL (0.0-131.0) 08/26/22 09:15 VLDL Cholesterol, Calc 10.34 mg/dL (5.00-40.00) 08/26/22 09:15 HDL Cholesterol 52.50 mg/dL (40.00-60.00) 08/26/22 09:15 Cholesterol/HDL Ratio 3.09 Ratio 08/26/22 09:15 TSH 1.800 mIU/L (0.465-4.680) 08/26/22 09:15 Urine Color Yellow 08/25/22 11:44 Urine Appearance Turbid (Clear) H 08/25/22 11:44 Urine pH 7.5 (5.0-8.0) 08/25/22 11:44 Ur Specific [place] 1.022 (1.001-1.035) 08/25/22 11:44 Urine Protein Trace (Negative) H 08/25/22 11:44 Urine Glucose (UA) Negative (Negative) 08/25/22 11:44 Urine Ketones Negative (Negative) 08/25/22 11:44 Urine Blood Large (Negative) H 08/25/22 11:44 Urine Nitrite Negative (Negative) 08/25/22 11:44 Urine Bilirubin Negative (Negative) 08/25/22 11:44 Urine Urobilinogen <2.0 mg/dL (<2.0) 08/25/22 11:44 Ur Leukocyte Esterase Negative (Negative) 08/25/22 11:44 Urine RBC 104 /hpf (0-5) H 08/25/22 11:44 Urine WBC 2 /hpf (0-5) 08/25/22 11:44 Ur Squamous Epith Cells <1 /hpf (0-4) 08/25/22 11:44 Amorphous Sediment Occasional /hpf (None) H 08/25/22 11:44 Urine Mucus Rare /hpf (None) H 08/25/22 11:44 Urine HCG, Qual Not Detected (Not Detectd) 08/25/22 11:44 Urine Opiates Screen Not Detected (NotDetected) 08/25/22 11:44 Ur Oxycodone Screen Not Detected (NotDetected) 08/25/22 11:44 Urine Methadone Screen Not Detected (NotDetected) 08/25/22 11:44 Ur Propoxyphene Screen Not Detected (NotDetected) 08/25/22 11:44 Ur Barbiturates Screen Not Detected (NotDetected) 08/25/22 11:44 U Tricyclic Antidepress Not Detected (NotDetected) 08/25/22 11:44 Ur Phencyclidine Scrn Not Detected (NotDetected) 08/25/22 11:44 Ur Amphetamines Screen Not Detected (NotDetected) 08/25/22 11:44 U Methamphetamines Scrn Not Detected (NotDetected) 08/25/22 11:44 U Benzodiazepines Scrn Not Detected (NotDetected) 08/25/22 11:44 [place] 0.2 mmol/L 08/30/22 07:10 Urine Cocaine Screen Not Detected (NotDetected) 08/25/22 11:44 U Marijuana (THC) Screen Detected (NotDetected) H 08/25/22 11:44 Coronavirus (PCR) Not Detected (Not Detectd) 08/25/22 16:10 Vital Signs Temp 97.8 F 08/29/22 06:50 Pulse 94 08/29/22 06:50 Resp 16 08/29/22 06:50 BP 113/66 08/29/22 06:50 Pulse Ox 100 08/27/22 08:52 FiO2 Patient Condition at Discharge: Stable Plan - Discharge Summary Discharge Rx Participant: No New Discharge Prescriptions: New DULoxetine HCL [Cymbalta] 30 mg PO HS 30 Days cap hydrOXYzine pamoate [Vistaril] 50 mg PO BID PRN 30 Days cap PRN Reason: Anxiety traZODone HCL [Desyrel] 100 mg PO HS PRN 30 Days tab PRN Reason: Insomnia Nicotine 21Mg/24Hr Patch [Habitrol] 1 patch TRANSDERM DAILY 14 Days patch [place] Carbonate 150 mg PO BID 30 Days cap Continue medroxyPROGESTERone [Depo-Provera] 150 mg IM Q90D Discontinued DULoxetine HCL [Cymbalta] 60 mg PO HS ARIPiprazole 10 mg PO HS Discharge Medication List medroxyPROGESTERone [Depo-Provera] 150 mg IM Q90D 08/25/22 [History] DULoxetine HCL [Cymbalta] 30 mg PO HS 30 Days cap 08/30/22 [Rx] [place] Carbonate 150 mg PO BID 30 Days cap 08/30/22 [Rx] Nicotine 21Mg/24Hr Patch [Habitrol] 1 patch TRANSDERM DAILY 14 Days patch 08/30/22 [Rx] hydrOXYzine pamoate [Vistaril] 50 mg PO BID PRN 30 Days cap 08/30/22 [Rx] traZODone HCL [Desyrel] 100 mg PO HS PRN 30 Days tab 08/30/22 [Rx] Follow up Appointment(s)/Referral(s): Counseling, [facility] [Other] - 09/03/22 1:00 pm ([place] 09/03 @ 13:00) Cecile Ayala DO [Primary Care Provider] - 1-2 days Activity/Diet/Wound Care/Special Instructions: Avoid the use of street drugs and alcohol. Take all prescriptions as prescribed. When you are in need of refills on your medications, please contact your medical provider and/or outpatient psychiatrist to have this done. Please go to scheduled outpatient appointment for aftercare treatment. If symptoms return or become worse, call the crisis line at and/or go to the nearest emergency room for evaluation. Discharge Disposition: HOME SELF-CARE
[2022-08-30] MEDS: hydrOXYzine pamoate 25 MG CAP PO PRN (10:48)
--- NOTE | 2022-08-30 16:06 | PN ---
PROGRESS NOTE CHIEF COMPLAINT: The patient was admitted for increasing stress, depression, and thoughts of cutting her wrists. INTERVAL HISTORY: The patient has been doing fairly well. She had a quiet day yesterday. She was out on the unit. She interacts with others. She said that she slept fairly well last night after receiving p.r.n. trazodone. Today, she has been up. She attends groups. She feels that her mood has improved. She feels that since she has been started on lithium, she is doing much better. She also noted that when her Cymbalta dose had been increased to 60 mg a day, it caused excessive sedation and also that she just did not feel well on the medication. The dose has now been reduced to 30 mg, and she says she is tolerating it well. She has a fairly good outlook. She does describe a history of manic episodes. Her last episode was 1 to 2 months ago. She notes that she will have decreased need for sleep. She gets excessive energy. At times, she can get euphoria and other times more impulsivity and anger. Typically, manic episodes will last anywhere from a few days to a few weeks. She says in the last month or so for the most part, depression has been the issue for her. She tolerates her psychotropic medications. MENTAL STATUS: The patient gave good eye contact. She answered questions appropriately. Her thoughts were clear and coherent. She was spontaneous and interactive. Her affect was in a reasonable range. She had a friendly manner. Her mood was quiet, though not clearly down or depressed. She did not show any issues of elevated mood. She did not appear to be distressed. There was no indication of thought disorder. She was denying thoughts of harm. She was oriented and alert. ASSESSMENT AND PLAN: I will continue with current diagnosis and treatment plan. The patient will continue Cymbalta 30 mg a day and lithium carbonate 150 mg twice a day. In addition, she has Desyrel p.r.n. I reviewed issues relating to bipolar disorder and potential risks for the patient being on any antidepressants. Some authority figures would note that antidepressants may contribute to increased cycling. [place] would be a primary medication for bipolar disorder, both for ursula as well as bipolar depression. We discussed blood levels with lithium and reviewed potential side effects as well as concerns relating to lithium toxicity as well as issues relating to kidney function. It is noteworthy that her creatinine is 0.84 and GFR is greater than 90. TSH is 1.8. I discussed with the patient that smoking marijuana does put her at some risk for destabilizing her mood condition, which is a serious condition. She says she only smokes marijuana about once a week. I recommended that she stop smoking altogether. We will focus on stabilization and discharge planning. I anticipate the patient being discharged in the next few days. LIBRADO / BOB: [birth year] /
== END 2022-08-30 12:10 | disposition home or self-care (01) | DRG 885 ==
LOC: EC 10:00 → 3MHU 19:05
PROVIDERS: ADMIT Psychiatry & Neurology Psychiatry; ATTEND Psychiatry & Neurology Psychiatry
DX: F33.9 Major depressive disorder, recurrent, unspecified (principal); F12.90 Cannabis use, unspecified, uncomplicated; F17.210 Nicotine dependence, cigarettes, uncomplicated; F25.9 Schizoaffective disorder, unspecified; F31.30 Bipolar disorder, current episode depressed, mild or moderate severity, unspecified; F43.10 Post-traumatic stress disorder, unspecified; F60.3 Borderline personality disorder; G47.00 Insomnia, unspecified; Z20.822 Contact with and (suspected) exposure to COVID-19; Z79.899 Other long term (current) drug therapy; Z81.8 Family history of other mental and behavioral disorders
CPT/HCPCS: 80053; 80061; 80178; 80306; 81001; 81025; 82075; 82248; 83036; 84443; 85025; 87635; 99285

== ENCOUNTER 2025-03-20 17:42 | Emergency (ER) | payer BC ==
[2025-03-20 17:50] VITALS: RESP 18; TEMP 97.9
[2025-03-20 19:05] LABS: Basophils # (A) 0.08 10*3/uL (0.00-0.10); Basophils % (A) 1.1 %; Eosinophils # (A) 0.07 10*3/uL (0.04-0.35); HCT 35.6 % (37.2-46.3); HGB 11.7 g/dL (12.0-15.0); Lymphocytes # (A) 1.74 10*3/uL (0.90-5.00); Lymphocytes % (A) 24.5 %; MCH 27.7 pg (27.0-32.0); MCHC 32.9 g/dL (32.0-37.0); MCV 84.2 fL (80.0-97.0); Mean Platelet Volume 8.8 fL (9.5-12.2); Monocytes # (A) 0.48 10*3/uL (0.20-1.00); Monocytes % (A) 6.8 %; Neutrophils # (A) 4.71 10*3/uL (1.80-7.70); Neutrophils % (A) 66.5 %; Platelet Count 391 10*3/uL (140-440); RBC 4.23 10*6/uL (4.10-5.20); RDW 13.5 % (11.5-14.5); WBC 7.09 10*3/uL (4.50-10.00)
[2025-03-20 19:16] LABS: Partial Thromboplastin Time 25.1 sec (22.0-30.0); Prothrombin Time 11.1 sec (10.0-12.5)
[2025-03-20 19:23] LABS: ALT 12 U/L (4-34); AST 18 U/L (14-36); African American GFR (CKD) >90 (>60 ml/min/1.73 sqM); Albumin 4.9 g/dL (3.5-5.0); Alkaline Phosphatase 49 U/L (38-126); Anion Gap 12 mmol/L; Blood Urea Nitrogen 7 mg/dL (7-17); Calcium 10.1 mg/dL (8.4-10.2); Carbon Dioxide 25 mmol/L (22-30); Chloride 103 mmol/L (98-107); Magnesium 1.9 mg/dL (1.6-2.3); Non-African American GFR(CKD) >90 (>60 ml/min/1.73 sqM); Potassium 3.5 mmol/L (3.5-5.1); Sodium 140 mmol/L (137-145); Total Bilirubin 0.5 mg/dL (0.2-1.3); Total Protein 7.3 g/dL (6.3-8.2)
[2025-03-20 19:27] LABS: Glucose 48 mg/dL (74-99)
--- NOTE | 2025-03-20 19:42 | XR ---
EXAMINATION TYPE: XR chest 2V DATE OF EXAM: 03/20/2025 7:34 PM COMPARISON: None. CLINICAL INDICATION: Female, 24 years old with history of Chest Pain, TECHNIQUE: Frontal and lateral views of the chest are obtained. FINDINGS: There is no focal air space opacity, pleural effusion, or pneumothorax seen. The cardiac silhouette size is within normal limits. The osseous structures are intact. IMPRESSION: No acute cardiopulmonary process. [facility], , 03/20/2025 7:40 PM
[2025-03-20 19:49] LABS: Glucose,Whole Blood 70 mg/dL (70-110)
--- NOTE | 2025-03-20 19:58 | ED ---
General Adult HPI - General Chief complaint: Chest Pain Stated complaint: Chest/Back Pain Time Seen by Provider: 03/20/25 17:55 Source: patient, RN notes reviewed Mode of arrival: ambulatory Limitations: no limitations - History of Present Illness Initial comments: 24-year-old female with no reported medical condition presents emergency department for complaint of chest pain and shortness of breath that started this morning when she woke up. She states that the pain is located on the left side of her chest that feels like a stabbing sensation that goes down into her abdomen. She states that the pain is worse with deep inspiration and movement and with pressure. 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 She denies history of DVT, PE, recent travel, recent surgeries, calf swelling or pain. - Related Data Home Medications Medication Instructions Recorded Confirmed medroxyPROGESTERone [Depo-Provera] 150 mg IM Q90D 08/25/22 08/25/22 Previous Rx's Medication Instructions Recorded DULoxetine HCL [Cymbalta] 30 mg PO HS 30 Days cap 08/30/22 [place] Carbonate 150 mg PO BID 30 Days cap 08/30/22 Nicotine 21Mg/24Hr Patch [Habitrol] 1 patch TRANSDERM DAILY 14 Days 08/30/22 patch hydrOXYzine pamoate [Vistaril] 50 mg PO BID PRN 30 Days cap 08/30/22 traZODone HCL [Desyrel] 100 mg PO HS PRN 30 Days tab 08/30/22 Allergies Allergy/AdvReac Type Severity Reaction Status Date / Time No Known Allergies Allergy Verified 03/20/25 17:49 Review of Systems ROS Statement: Those systems with pertinent positive or pertinent negative responses have been documented in the HPI. ROS Other: All systems not noted in ROS Statement are negative. Past Medical History Past Medical History: No Reported History History of Any Multi-Drug Resistant Organisms: None Reported Past Surgical History: No Surgical Hx Reported Past Psychological History: Anxiety, Bipolar, Depression, PTSD, Schizoaffective Disorder Smoking Status: Current every day smoker, Vaper Past Alcohol Use History: None Reported Past Drug Use History: Marijuana General Exam Limitations: no limitations General appearance: alert, in no apparent distress ENT exam: Present: normal exam, mucous membranes moist Neck exam: Present: normal inspection. Absent: tenderness, meningismus, lymphadenopathy Respiratory exam: Present: normal lung sounds bilaterally, chest wall tenderness (anterior to palpation and on inspiration). Absent: respiratory distress, wheezes, rales, rhonchi, stridor Cardiovascular Exam: Present: regular rate, normal rhythm, normal heart sounds. Absent: systolic murmur, diastolic murmur, rubs, gallop, clicks GI/Abdominal exam: Present: soft, normal bowel sounds. Absent: distended, tenderness, guarding, rebound, rigid Extremities exam: Present: normal inspection, full ROM, normal capillary refill. Absent: tenderness, pedal edema, joint swelling, calf tenderness Course Vital Signs 03/20/25 03/20/25 17:46 20:23 Temperature 97.9 F Pulse Rate 122 H 84 Respiratory 18 18 Rate Blood Pressure 136/85 133/78 O2 Sat by Pulse 100 99 Oximetry Medical Decision Making - Medical Decision Making Was pt. sent in by a medical professional or institution (, PA, FOUNTAIN SERVER, urgent care, hospital, or retirement...) When possible be specific @ -No Did you speak to anyone other than the patient for history (EMS, parent, family, police, friend...)? What history was obtained from this source @ -No Did you review nursing and triage notes (agree or disagree)? Why? @ -I reviewed and agree with nursing and triage notes Were old charts reviewed (outside hosp., previous admission, EMS record, old EKG, old radiological studies, urgent care reports/EKG's, retirement records)? Report findings @ -No old charts were reviewed Differential Diagnosis (chest pain, altered mental status, abdominal pain women, abdominal pain men, vaginal bleeding, weakness, fever, dyspnea, syncope, headache, dizziness, GI bleed, back pain, seizure, CVA, palpatations, mental health, musculoskeletal)? @ -Differential Chest Pain: Stable Angina, Unstable Angina, STEMI, NSTEMI Aortic Dissection, Pneumothorax, Musculoskeletal, Esophageal Spasm GERD, Cholecystitis, Pancreatitis, Zoster, this is not meant to be an all-inclusive list. EKG interpreted by me (3pts min.). @ -Completed at 1843 sinus rhythm with a ventricular rate of 82, UT interval 138, QRS 92, QT 348, QTc 386. X-rays interpreted by me (1pt min.). @ -Chest x-ray no acute cardiopulmonary process or disease CT interpreted by me (1pt min.). @ -None done U/S interpreted by me (1pt. min.). @ -None done What testing was considered but not performed or refused? (CT, X-rays, U/S, labs)? Why? @ -None What meds were considered but not given or refused? Why? @ -None Did you discuss the management of the patient with other professionals (professionals i.e. , PA, FOUNTAIN SERVER, lab, RT, psych nurse, manager social work, shredding machine tender, teacher, liaison officer, pillowcase maker)? Give summary @ -No Was smoking cessation discussed for >3mins.? @ -No Was critical care preformed (if so, how long)? @ -No Were there social determinants of health that impacted care today? How? (Homelessness, low income, unemployed, alcoholism, drug addiction, transportation, low edu. Level, literacy, decrease access to med. care, skilled nursing, rehab)? @ -No Was there de-escalation of care discussed even if they declined (Discuss DNR or withdrawal of care, Hospice)? DNR status @ -No What co-morbidities impacted this encounter? (DM, HTN, Smoking, COPD, CAD, Cancer, CVA, ARF, Chemo, Hep., AIDS, mental health diagnosis, sleep apnea, morbid obesity)? @ -None Was patient admitted / discharged? Hospital course, mention meds given and route, prescriptions, significant lab abnormalities, going to OR and other pertinent info. @ -Discharge. 24-year-old female presents emergency department for complaints of chest pain. Overall patient is well-appearing and initial vitals are stable however she is tachycardic. On recheck heart rate has resolved to 84. EKG reveals a sinus rhythm. Laboratory test including CBC, coagulation troponin unremarkable. Patient is noted to be hypoglycemic with a glucose of 48 however on recheck her glucose is 70. Patient's pain leading to musculoskeletal in natu re as it is reproducible with palpation and with range of motion. Recommend continue supportive treatment at bedside and follow-up with primary care provider. Case discussed with Dr. Posada Undiagnosed new problem with uncertain prognosis? @ -No Drug Therapy requiring intensive monitoring for toxicity (Heparin, Nitro, Insulin, Cardizem)? @ -No Were any procedures done? @ -No Diagnosis/symptom? @ -Noncardiac chest pain Acute, or Chronic, or Acute on Chronic? @ -Acute Uncomplicated (without systemic symptoms) or Complicated (systemic symptoms)? @ -Uncomplicated Side effects of treatment? @ -No Exacerbation, Progression, or Severe Exacerbation? @ -No Poses a threat to life or bodily function? How? (Chest pain, [place], [place], pneumonia, PE, COPD, DKA, ARF, appy, cholecystitis, CVA, Diverticulitis, Homicidal, Suicidal, threat to staff... and all critical care pts) @ -No - Lab Data Result diagrams: 03/20/25 18:55 03/20/25 18:55 Lab Results 03/20/25 03/20/25 03/20/25 Range/Units 18:55 18:55 18:55 WBC 7.09 (4.50-10.00) 10*3/uL RBC 4.23 (4.10-5.20) 10*6/uL Hgb 11.7 L (12.0-15.0) g/dL Hct 35.6 L (37.2-46.3) % MCV 84.2 (80.0-97.0) fL MCH 27.7 (27.0-32.0) pg MCHC 32.9 (32.0-37.0) g/dL Plt Count 391 (140-440) 10*3/uL MPV 8.8 L (9.5-12.2) fL Immature Gran % (Auto) 0.1 % Neutrophils % 66.5 % Lymphocytes % 24.5 % Monocytes % 6.8 % Eosinophils % 1.0 % Basophils % 1.1 % Immature Gran # 0.01 (0.00-0.04) 10*3/uL Neutrophils # 4.71 (1.80-7.70) 10*3/uL Lymphocytes # 1.74 (0.90-5.00) 10*3/uL Monocytes # 0.48 (0.20-1.00) 10*3/uL Eosinophils # 0.07 (0.04-0.35) 10*3/uL Basophils # 0.08 (0.00-0.10) 10*3/uL PT 11.1 (10.0-12.5) sec INR 1.0 (<1.2) APTT 25.1 (22.0-30.0) sec Sodium 140 (137-145) mmol/L Potassium 3.5 (3.5-5.1) mmol/L Chloride 103 (98-107) mmol/L Carbon Dioxide 25 (22-30) mmol/L Anion Gap 12 mmol/L BUN 7 (7-17) mg/dL Creatinine 0.58 (0.52-1.04) mg/dL Est GFR (CKD-EPI)AfAm >90 (>60 ml/min/1.73 sqM) Est GFR (CKD-EPI)NonAf >90 (>60 ml/min/1.73 sqM) Glucose 48 L* (74-99) mg/dL POC Glucose (mg/dL) (70-110) mg/dL POC Glu Claims Associate ID Calcium 10.1 (8.4-10.2) mg/dL Magnesium 1.9 (1.6-2.3) mg/dL Total Bilirubin 0.5 (0.2-1.3) mg/dL AST 18 (14-36) U/L ALT 12 (4-34) U/L Alkaline Phosphatase 49 (38-126) U/L Troponin I (0.000-0.034) ng/mL Total Protein 7.3 (6.3-8.2) g/dL Albumin 4.9 (3.5-5.0) g/dL 03/20/25 03/20/25 Range/Units 18:55 19:37 WBC (4.50-10.00) 10*3/uL RBC (4.10-5.20) 10*6/uL Hgb (12.0-15.0) g/dL Hct (37.2-46.3) % MCV (80.0-97.0) fL MCH (27.0-32.0) pg MCHC (32.0-37.0) g/dL Plt Count (140-440) 10*3/uL MPV (9.5-12.2) fL Immature Gran % (Auto) % Neutrophils % % Lymphocytes % % Monocytes % % Eosinophils % % Basophils % % Immature Gran # (0.00-0.04) 10*3/uL Neutrophils # (1.80-7.70) 10*3/uL Lymphocytes # (0.90-5.00) 10*3/uL Monocytes # (0.20-1.00) 10*3/uL Eosinophils # (0.04-0.35) 10*3/uL Basophils # (0.00-0.10) 10*3/uL PT (10.0-12.5) sec INR (<1.2) APTT (22.0-30.0) sec Sodium (137-145) mmol/L Potassium (3.5-5.1) mmol/L Chloride (98-107) mmol/L Carbon Dioxide (22-30) mmol/L Anion Gap mmol/L BUN (7-17) mg/dL Creatinine (0.52-1.04) mg/dL Est GFR (CKD-EPI)AfAm (>60 ml/min/1.73 sqM) Est GFR (CKD-EPI)NonAf (>60 ml/min/1.73 sqM) Glucose (74-99) mg/dL POC Glucose (mg/dL) 70 (70-110) mg/dL POC Glu Claims Associate ID Gaurav Bazana Calcium (8.4-10.2) mg/dL Magnesium (1.6-2.3) mg/dL Total Bilirubin (0.2-1.3) mg/dL AST (14-36) U/L ALT (4-34) U/L Alkaline Phosphatase (38-126) U/L Troponin I <0.012 (0.000-0.034) ng/mL Total Protein (6.3-8.2) g/dL Albumin (3.5-5.0) g/dL Disposition Clinical Impression: Chest pain, non-cardiac Disposition: HOME SELF-CARE Condition: Good Instructions (If sedation given, give patient instructions): Chest Pain (ED) Additional Instructions: Please return to the Emergency Department if symptoms worsen or any other concerns. Is patient prescribed a controlled substance at d/c from ED?: No Referrals: Cecile Ayala DO [Primary Care Provider] - 1-2 days Time of Disposition: 20:16
[2025-03-20 20:25] VITALS: BP 133/78; PULSE 84
== END 2025-03-20 20:25 | disposition home or self-care (01) ==
LOC: EC 17:42
DX: R07.9 Chest pain, unspecified (principal); F17.290 Nicotine dependence, other tobacco product, uncomplicated
CPT/HCPCS: 36415; 71046; 80053; 83735; 84484; 85025; 85610; 85730; 93005; 99285

== ENCOUNTER 2025-04-25 18:48 | Emergency (ER) | payer BC ==
[2025-04-25 18:58] VITALS: RESP 18
--- NOTE | 2025-04-25 20:20 | ED ---
General Adult HPI - General Chief complaint: Abdominal Pain Stated complaint: abdominal pain, chest pain Time Seen by Provider: 04/25/25 19:00 Source: patient, RN notes reviewed Mode of arrival: ambulatory Limitations: no limitations - History of Present Illness Initial comments: This is a 24-year-old female presenting to emergency room with complaints of lower abdominal/pelvic pain and chest pain. Patient states that she has been having persistent right lower abdominal pain where she was recently admitted to the hospital for acute pancreatitis and states that she was discharged instructed follow-up with her OB for further evaluation. Patient's pelvic pain and chest pain is chronic in nature. She endorses nausea with no reported emesis. States that she is currently on her menstrual cycle and is unaware if she has been experiencing hematuria. Denies vaginal discharge, concern for STDs, fevers, chills, difficulty in breathing. - Related Data Home Medications Medication Instructions Recorded Confirmed DULoxetine HCL [Cymbalta] 60 mg PO DAILY 04/19/25 04/19/25 Lisdexamfetamine Dimesylate 40 mg PO DAILY 04/19/25 04/19/25 lamoTRIgine [lamoTRIgine ER] 100 mg PO DAILY 04/19/25 04/19/25 Previous Rx's Medication Instructions Recorded Nicotine 21Mg/24Hr Patch [Habitrol] 1 patch TRANSDERM DAILY 14 Days 08/30/22 patch Cholecalciferol (Vitamin D3) 1,250 mcg PO WEEKLY 42 Days #6 tab 04/20/25 [Vitamin D3 (1250 Mcg = 50,000 Iu)] Allergies Allergy/AdvReac Type Severity Reaction Status Date / Time shellfish derived [Shellfish] Allergy Anaphylaxis Verified 04/25/25 18:58 /Nausea/Vom iting Review of Systems ROS Statement: Those systems with pertinent positive or pertinent negative responses have been documented in the HPI. ROS Other: All systems not noted in ROS Statement are negative. Past Medical History Past Medical History: No Reported History History of Any Multi-Drug Resistant Organisms: None Reported Past Surgical History: No Surgical Hx Reported Additional Past Surgical History / Comment(s): wisdom teeth removal 2023 Past Psychological History: Anxiety, Bipolar, Depression, PTSD, Schizoaffective Disorder Smoking Status: Current every day smoker, Vaper Past Alcohol Use History: None Reported Past Drug Use History: Marijuana General Exam Limitations: no limitations General appearance: alert, in no apparent distress ENT exam: Present: normal exam, mucous membranes moist Neck exam: Present: normal inspection. Absent: tenderness, meningismus, lymphadenopathy Respiratory exam: Present: normal lung sounds bilaterally, chest wall tenderness (anterior mid-chest). Absent: respiratory distress, wheezes, rales, rhonchi, stridor Cardiovascular Exam: Present: regular rate, normal rhythm, normal heart sounds. Absent: systolic murmur, diastolic murmur, rubs, gallop, clicks GI/Abdominal exam: Present: soft, tenderness (right mid abdomen), normal bowel sounds. Absent: distended, guarding, rebound, rigid Extremities exam: Present: normal inspection, full ROM, normal capillary refill. Absent: tenderness, pedal edema, joint swelling, calf tenderness Back exam: Present: normal inspection. Absent: CVA tenderness (R), CVA tenderness (L) Course Vital Signs 04/25/25 04/25/25 18:56 22:35 Temperature 98.8 F 98.6 F Pulse Rate 112 H 103 H Respiratory 18 18 Rate Blood Pressure 152/89 160/78 O2 Sat by Pulse 98 99 Oximetry Medical Decision Making - Medical Decision Making Was pt. sent in by a medical professional or institution (, PA, ROTARY ENVELOPE MACHINE OPERATOR, urgent care, hospital, or [facility]...) When possible be specific @ -No Did you speak to anyone other than the patient for history (EMS, parent, family, police, friend...)? What history was obtained from this source @ -No Did you review nursing and triage notes (agree or disagree)? Why? @ -I reviewed and agree with nursing and triage notes Were old charts reviewed (outside hosp., previous admission, EMS record, old EKG, old radiological studies, urgent care reports/EKG's, [facility] records)? Report findings @ -I reviewed patient's Emergency Department visit note from 04/19/2025 where she underwent extensive testing including CT of the abdomen pelvis, ultrasound where she was admitted for acute pancreatitis. Differential Diagnosis (chest pain, altered mental status, abdominal pain women, abdominal pain men, vaginal bleeding, weakness, fever, dyspnea, syncope, headache, dizziness, GI bleed, back pain, seizure, CVA, palpatations, mental health, musculoskeletal)? @ -Differential Abdominal Pain Women: Appendicitis, Cholecystitis, diverticulosis, ischemic bowel, pancreatitis, h epatitis, UTI, gastroenteritis, AAA, incarcerated hernia, bowel obstruction, constipation, inflammatory bowel, hepatitis, peptic ulcer disease, splenic infarction, perforated viscus, vulvitis, ovarian torsion, PID, kidney stone, placenta abruption, this is not meant to be an all-inclusive list EKG interpreted by me (3pts min.). @ -Completed at 2032 sinus rhythm with a ventricular rate of 68, HI interval 131, QRS 89, QT 359, QTc 376. X-rays interpreted by me (1pt min.). @ -None done CT interpreted by me (1pt min.). @ -None done U/S interpreted by me (1pt. min.). @ -None done What testing was considered but not performed or refused? (CT, X-rays, U/S, labs)? Why? @ -None What meds were considered but not given or refused? Why? @ -None Did you discuss the management of the patient with other professionals (professionals i.e. , PA, ROTARY ENVELOPE MACHINE OPERATOR, lab, RT, psych nurse, school social worker, customer complaint clerk, teacher, special weapons unit officer, rn field case manager)? Give summary @ -No Was smoking cessation discussed for >3mins.? @ -No Was critical care preformed (if so, how long)? @ -No Were there social determinants of health that impacted care today? How? (Homelessness, low income, unemployed, alcoholism, drug addiction, transp ortation, low edu. Level, literacy, decrease access to med. care, alf, rehab)? @ -No Was there de-escalation of care discussed even if they declined (Discuss DNR or withdrawal of care, Hospice)? DNR status @ -No What co-morbidities impacted this encounter? (DM, HTN, Smoking, COPD, CAD, Cancer, CVA, ARF, Chemo, Hep., AIDS, mental health diagnosis, sleep apnea, morbid obesity)? @ -None Was patient admitted / discharged? Hospital course, mention meds given and route, prescriptions, significant lab abnormalities, going to OR and other pertinent info. @ -Discharge. 24-year-old female presented emergency room with complaints of chronic chest pain and chronic pelvic/abdominal pain. Patient's exam reveals mild tenderness to the lower abdomen and chest pain is reproducible on examinati on. EKG is in sinus rhythm. Patient was offered pain medication however declined. Laboratory testing is unremarkable, urinalysis reveals blood however this is consistent with patient being on her menstrual cycle. hCG is negative. Patient was offered medication again and was declined. States that she has appointment scheduled with OB for follow-up in the next upcoming weeks. Return parameters discussed. Case discussed with Dr. Avalos Undiagnosed new problem with uncertain prognosis? @ -No Drug Therapy requiring intensive monitoring for toxicity (Heparin, Nitro, Insulin, Cardizem)? @ -No Were any procedures done? @ -No Diagnosis/symptom? @ -Abdominal pain/pelvic pain, chest pain Acute, or Chronic, or Acute on Chronic? @ -Chronic Uncomplicated (without systemic symptoms) or Complicated (systemic symptoms)? @ -Uncomplicated Side effects of treatment? @ -No Exacerbation, Progression, or Severe Exacerbation? @ -No Poses a threat to life or bodily function? How? (Chest pain, [place], [place], pneumonia, PE, COPD, DKA, ARF, appy, cholecystitis, CVA, Diverticulitis, Homicidal, Aida cidal, threat to staff... and all critical care pts) @ -No - Lab Data Result diagrams: 04/25/25 21:06 04/25/25 21:06 Lab Results 04/25/25 04/25/25 04/25/25 Range/Units 21:06 21:06 21:06 WBC 12.08 H (4.50-10.00) 10*3/uL RBC 4.11 (4.10-5.20) 10*6/uL Hgb 11.2 L (12.0-15.0) g/dL Hct 34.7 L (37.2-46.3) % MCV 84.4 (80.0-97.0) fL MCH 27.3 (27.0-32.0) pg MCHC 32.3 (32.0-37.0) g/dL Plt Count 375 (140-440) 10*3/uL MPV 8.8 L (9.5-12.2) fL Immature Gran % (Auto) 0.2 % Neutrophils % 72.5 % Lymphocytes % 20.4 % Monocytes % 5.0 % Eosinophils % 1.2 % Basophils % 0.7 % Immature Gran # 0.03 (0.00-0.04) 10*3/uL Neutrophils # 8.75 H (1.80-7.70) 10*3/uL Lymphocytes # 2.46 (0.90-5.00) 10*3/uL Monocytes # 0.61 (0.20-1.00) 10*3/uL Eosinophils # 0.15 (0.04-0.35) 10*3/uL Basophils # 0.08 (0.00-0.10) 10*3/uL Sodium (137-145) mmol/L Potassium (3.5-5.1) mmol/L Chloride (98-107) mmol/L Carbon Dioxide (22-30) mmol/L Anion Gap mmol/L BUN (7-17) mg/dL Creatinine (0.52-1.04) mg/dL Est GFR (CKD-EPI)AfAm (>60 ml/min/1.73 sqM) Est GFR (CKD-EPI)NonAf (>60 ml/min/1.73 sqM) Glucose (74-99) mg/dL Calcium (8.4-10.2) mg/dL Total Bilirubin (0.2-1.3) mg/dL AST (14-36) U/L ALT (4-34) U/L Alkaline Phosphatase (38-126) U/L Troponin I (0.000-0.034) ng/mL Total Protein (6.3-8.2) g/dL Albumin (3.5-5.0) g/dL Amylase (30-110) U/L Lipase (23-300) U/L Urine Color Red Urine Appearance Cloudy H (Clear) Urine pH 7.0 (5.0-8.0) Ur Specific [place] 1.006 (1.001-1.035) Urine Protein 2+ H (Negative) Urine Glucose (UA) Negative (Negative) Urine Ketones Negative (Negative) Urine Blood Large H (Negative) Urine Nitrite Negative (Negative) Urine Bilirubin Negative (Negative) Urine Urobilinogen <2.0 (<2.0) mg/dL Ur Leukocyte Esterase Large H (Negative) Urine RBC >182 H (0-5) /hpf Urine WBC 63 H (0-5) /hpf Ur Squamous Epith Cells 5 H (0-4) /hpf Urine Bacteria Occasional H (None) /hpf Urine HCG, Qual Not Detected (Not Detectd) 06/06/25 06/06/25 Range/Units 21:06 21:06 WBC (4.50-10.00) 10*3/uL RBC (4.10-5.20) 10*6/uL Hgb (12.0-15.0) g/dL Hct (37.2-46.3) % MCV (80.0-97.0) fL MCH (27.0-32.0) pg MCHC (32.0-37.0) g/dL Plt Count (140-440) 10*3/uL MPV (9.5-12.2) fL Immature Gran % (Auto) % Neutrophils % % Lymphocytes % % Monocytes % % Eosinophils % % Basophils % % Immature Gran # (0.00-0.04) 10*3/uL Neutrophils # (1.80-7.70) 10*3/uL Lymphocytes # (0.90-5.00) 10*3/uL Monocytes # (0.20-1.00) 10*3/uL Eosinophils # (0.04-0.35) 10*3/uL Basophils # (0.00-0.10) 10*3/uL Sodium 137 (137-145) mmol/L Potassium 3.7 (3.5-5.1) mmol/L Chloride 100 (98-107) mmol/L Carbon Dioxide 25 (22-30) mmol/L Anion Gap 12 mmol/L BUN 10 (7-17) mg/dL Creatinine 0.63 (0.52-1.04) mg/dL Est GFR (CKD-EPI)AfAm >90 (>60 ml/min/1.73 sqM) Est GFR (CKD-EPI)NonAf >90 (>60 ml/min/1.73 sqM) Glucose 74 (74-99) mg/dL Calcium 10.4 H (8.4-10.2) mg/dL Total Bilirubin 0.6 (0.2-1.3) mg/dL AST 19 (14-36) U/L ALT 11 (4-34) U/L Alkaline Phosphatase 56 (38-126) U/L Troponin I <0.012 (0.000-0.034) ng/mL Total Protein 7.6 (6.3-8.2) g/dL Albumin 5.2 H (3.5-5.0) g/dL Amylase 86 (30-110) U/L Lipase 314 H (23-300) U/L Urine Color Urine Appearance (Clear) Urine pH (5.0-8.0) Ur Specific [place] (1.001-1.035) Urine Protein (Negative) Urine Glucose (UA) (Negative) Urine Ketones (Negative) Urine Blood (Negative) Urine Nitrite (Negative) Urine Bilirubin (Negative) Urine Urobilinogen (<2.0) mg/dL Ur Leukocyte Esterase (Negative) Urine RBC (0-5) /hpf Urine WBC (0-5) /hpf Ur Squamous Epith Cells (0-4) /hpf Urine Bacteria (None) /hpf Urine HCG, Qual (Not Detectd) Disposition Clinical Impression: Chronic pelvic pain in female, Chronic chest pain Disposition: HOME SELF-CARE Condition: Stable Instructions (If sedation given, give patient instructions): Pelvic Pain in Women (ED) Additional Instructions: Please return to the Emergency Department if symptoms worsen or any other concerns. Is patient prescribed a controlled substance at d/c from ED?: No Referrals: Cecile Ayala DO [Primary Care Provider] - 1-2 days Time of Disposition: 22:29
[2025-04-25 21:21] LABS: Basophils # (A) 0.08 10*3/uL (0.00-0.10); Basophils % (A) 0.7 %; Eosinophils # (A) 0.15 10*3/uL (0.04-0.35); Eosinophils % (A) 1.2 %; HCT 34.7 % (37.2-46.3); HGB 11.2 g/dL (12.0-15.0); Lymphocytes # (A) 2.46 10*3/uL (0.90-5.00); Lymphocytes % (A) 20.4 %; MCH 27.3 pg (27.0-32.0); MCHC 32.3 g/dL (32.0-37.0); MCV 84.4 fL (80.0-97.0); Mean Platelet Volume 8.8 fL (9.5-12.2); Monocytes # (A) 0.61 10*3/uL (0.20-1.00); Neutrophils # (A) 8.75 10*3/uL (1.80-7.70); Neutrophils % (A) 72.5 %; Platelet Count 375 10*3/uL (140-440); RBC 4.11 10*6/uL (4.10-5.20); RDW 14.1 % (11.5-14.5); WBC 12.08 10*3/uL (4.50-10.00)
[2025-04-25 21:29] LABS: Appearance,Urine Cloudy (Clear); Bacteria,Urine Occasional /hpf; Bilirubin,Urine Negative (Negative); Blood,Urine Large (Negative); Color,Urine Red; Glucose,Urine (UA) Negative (Negative); Ketones,Urine Negative (Negative); Leukocyte Esterase,Urine Large (Negative); Nitrite,Urine Negative (Negative); Protein,Urine 2+ (Negative); RBC,Urine >182 /hpf (0-5); Specific Gravity,Urine 1.006 (1.001-1.035); Squamous Epithelial Cell,Urine 5 /hpf (0-4); Urobilinogen,Urine <2.0 mg/dL (<2.0); WBC,Urine 63 /hpf (0-5)
[2025-04-25 22:06] LABS: ALT 11 U/L (4-34); AST 19 U/L (14-36); African American GFR (CKD) >90 (>60 ml/min/1.73 sqM); Albumin 5.2 g/dL (3.5-5.0); Alkaline Phosphatase 56 U/L (38-126); Amylase 86 U/L (30-110); Anion Gap 12 mmol/L; Blood Urea Nitrogen 10 mg/dL (7-17); Calcium 10.4 mg/dL (8.4-10.2); Carbon Dioxide 25 mmol/L (22-30); Chloride 100 mmol/L (98-107); Glucose 74 mg/dL (74-99); Lipase 314 U/L (23-300); Non-African American GFR(CKD) >90 (>60 ml/min/1.73 sqM); Potassium 3.7 mmol/L (3.5-5.1); Sodium 137 mmol/L (137-145); Total Bilirubin 0.6 mg/dL (0.2-1.3); Total Protein 7.6 g/dL (6.3-8.2)
[2025-04-25 22:36] VITALS: BP 160/78; PULSE 103; TEMP 98.6
== END 2025-04-25 22:36 | disposition home or self-care (01) ==
LOC: EC 18:48
DX: G89.29 Other chronic pain (principal); R07.9 Chest pain, unspecified; B95.1 Streptococcus, group B, as the cause of diseases classified elsewhere; R10.2 Pelvic and perineal pain; F17.290 Nicotine dependence, other tobacco product, uncomplicated; Z91.013 Allergy to seafood
CPT/HCPCS: 36415; 80053; 81001; 81025; 82150; 83690; 84484; 85025; 87086; 93005; 99284